=== PATIENT | female | born 1955 ===

== ENCOUNTER 2021-03-14 15:53 | Observation (INO) ==
[2021-03-14] MEDS ORDERED: DEXTROSE 50% 25 GM/50 ML VIAL IV PRN (17:31)
[2021-03-14] MEDS ORDERED: ALBUTEROL/IPRATROPIUM 3 ML NEB RESP TX PRN (17:31)
[2021-03-14] MEDS ORDERED: ACETAMINOPHEN 325 MG TABLET PO PRN (17:31)
[2021-03-14] MEDS ORDERED: GLUCAGON 1 MG VIAL IM PRN (17:31)
[2021-03-14] MEDS ORDERED: ONDANSETRON 4 MG/2 ML VIAL IV PRN (17:31)
[2021-03-14 17:59] LABS: Basophils % 0.7 % (0.0-0.8); Eosinophils # 0.1 10*3/uL (0.0-0.87); Eosinophils % 1.9 % (0.00-10.9); Hematocrit 35.5 VOL% (35.7-47.0); Hemoglobin 10.9 GM/DL (12.0-16.0); Immature Granulocytes % 0.2 %; Immature Granulocytes Absolute 0.01 #; Lymphocytes # 0.8 10*3/uL (1.4-4.0); Lymphocytes % 18.3 % (21.3-54.2); Mean Corpuscular HGB Conc 30.7 GM/DL (32-36); Mean Corpuscular Volume 87.7 FL (87-102); Mean Platelet Volume 10.6 FL (9.6-12.0); Monocytes % 7.7 % (1.7-12.7); Neutrophils % 71.2 % (38.7-73.9); Platelet Count 158 T/CUMM (130-400); Red Blood Count 4.05 MC/CUMM (3.8-5.5); White Blood Count 4.2 T/CUMM (4-12)
[2021-03-14 18:31] LABS: Albumin 2.9 G/DL (3.4-5.0); Bilirubin,Total 0.8 MG/DL (0.20-1.00); Osmolality,Calculated 278.7 MOS/KG (273-304); Total Protein 8.2 G/DL (6.4-8.2)
[2021-03-14] MEDS: INSULIN REGULAR 100 UNIT/ML SUBCUT SCH (22:40)
[2021-03-14 22:54] LABS: Bacteria,Urine Occasional /HPF (Few); Bilirubin,Urine Negative (Negative); Blood, Urine Negative (Negative); Glucose,Urine (UA) Negative (Negative); Hyaline Casts,Urine 3 /LPF (0-3); Ketones,Urine Negative (Negative); Mucus,Urine Occasional /LPF (Occasional); Nitrite,Urine Negative (Negative); Protein,Urine Negative; RBC,Urine 2 /HPF (0-4); Squamous Epithelial Cell,Urine Occasional /HPF (0-10); Urine Appearance CLEAR (Clear); Urine Color Straw (Yellow); Urine Specific Gravity 1.005 (1.001-1.035); Urine Urobilinogen < 2.0 EU/DL (0.2-1.0)
[2021-03-15 05:56] LABS: Eosinophils # 0.1 10*3/uL (0.0-0.87); Eosinophils % 2.8 % (0.00-10.9); Hematocrit 30.1 VOL% (35.7-47.0); Hemoglobin 9.4 GM/DL (12.0-16.0); Immature Granulocytes % 0.3 %; Immature Granulocytes Absolute 0.01 #; Lymphocytes % 24.9 % (21.3-54.2); Mean Corpuscular HGB Conc 31.2 GM/DL (32-36); Mean Corpuscular Volume 86.5 FL (87-102); Mean Platelet Volume 10.9 FL (9.6-12.0); Monocytes % 8.6 % (1.7-12.7); Neutrophils % 62.4 % (38.7-73.9); Platelet Count 135 T/CUMM (130-400); Red Blood Count 3.48 MC/CUMM (3.8-5.5); Red Cell Distribution Width 16.7 % (9.3-17.3)
[2021-03-15 06:04] LABS: PT Patient Result 11.4 SECS (10.5-12.0); Partial Thromboplastin Time 26.8 SECS (23.8-32.1)
[2021-03-15 06:40] LABS: Albumin 2.6 G/DL (3.4-5.0); Bilirubin,Total 0.9 MG/DL (0.20-1.00); Calcium 8.8 MG/DL (8.5-10.1); Risk Ratio 5.33; Thyroid Stimulating Hormone 5.84 uIU/ml (0.358-3.74); Total Protein 7.4 G/DL (6.4-8.2); VLDL Cholesterol 19.4 MG/DL
[2021-03-15] MEDS: INSULIN REGULAR 100 UNIT/ML SUBCUT SCH ×2 (07:30→12:53)
[2021-03-15] MEDS ORDERED: PANTOPRAZOLE 40 MG TABLET PO SCH (09:00)
[2021-03-15 10:59] LABS: Neutrophils,Peritoneal Fluid 1 %
[2021-03-15 11:02] LABS: RBC,Peritoneal Fluid 125 T/CUMM
[2021-03-15 12:22] VITALS: BP 112/60
[2021-03-15] MEDS ORDERED: CALCIUM (CARBONATE) 500 MG TABLET PO SCH (15:00)
[2021-03-15] MEDS ORDERED: PREGABALIN 75 MG CAPSULE PO SCH (21:00)
[2021-03-15] MEDS ORDERED: ATORVASTATIN 40 MG TABLET PO SCH (21:00)
[2021-03-15] MEDS ORDERED: PROPRANOLOL 20 MG TABLET PO SCH (21:00)
[2021-03-16] MEDS ORDERED: SPIRONOLACTONE 50 MG TABLET PO SCH (09:00)
[2021-03-16] MEDS ORDERED: CHOLECALCIFEROL 1,000 UNIT TABLET PO SCH (09:00)
[2021-03-16] MEDS ORDERED: lisinopriL 2.5 MG TABLET PO SCH (09:00)
== END 2021-03-15 14:44 | disposition home or self-care (01) ==
LOC: SUATTDRO 17:26 → N.5E 17:26 → INTOOBSV 17:26
PROVIDERS: ADMIT Internal Medicine; ATTEND Internal Medicine

== ENCOUNTER 2021-11-20 23:50 | Inpatient (IN) ==
[2021-11-21 00:42] LABS: Basophils # 0.1 10*3/uL (0.0-0.2); Basophils % 0.6 % (0.0-0.8); Eosinophils # 0.1 10*3/uL (0.0-0.87); Eosinophils % 0.8 % (0.00-10.9); Hematocrit 37.1 VOL% (35.7-47.0); Immature Granulocytes % 1.1 %; Lymphocytes # 0.6 10*3/uL (1.4-4.0); Mean Corpuscular HGB Conc 32.3 GM/DL (32-36); Mean Platelet Volume 9.8 FL (9.6-12.0); Monocytes # 0.6 10*3/uL (0.11-0.8); Monocytes % 6.4 % (1.7-12.7); Neutrophils % 84.1 % (38.7-73.9); Platelet Count 157 T/CUMM (130-400); Red Blood Count 4.12 MC/CUMM (3.8-5.5); Red Cell Distribution Width 16.4 % (9.3-17.3); White Blood Count 8.9 T/CUMM (4-12)
[2021-11-21 00:44] LABS: Bacteria,Urine Many /HPF (Few); RBC,Urine 21 /HPF (0-4)
[2021-11-21 00:45] LABS: Bilirubin,Urine Small mg/dL (Negative); Blood, Urine Large mg/dL (Negative); Glucose,Urine (UA) >=1000 mg/dL (Negative); Ketones,Urine 15 mg/dL (Negative); Nitrite,Urine Negative (Negative); Protein,Urine 100 mg/dL (Negative); Urine Appearance Cloudy (Clear); Urine Color Yellow (Yellow); Urine Specific Gravity >= 1.030 (1.001-1.035)
[2021-11-21 00:45] LABS: PT Patient Result 10.8 SECS (10.5-12.0)
[2021-11-21 01:01] LABS: Albumin 2.2 G/DL (3.4-5.0); Bilirubin,Total 1.2 MG/DL (0.20-1.00); Calcium 8.9 MG/DL (8.5-10.1); Osmolality,Calculated 278.8 MOS/KG (273-304); Potassium 4.6 MMOL/L (3.5-5.1); Total Protein 7.3 G/DL (6.4-8.2)
[2021-11-21] MEDS ORDERED: cefTRIAXone 1,000 MG in SODIUM CHLORIDE 0.9% 100 ML IV STA (01:07)
[2021-11-21] MEDS ORDERED: INSULIN REGULAR 100 UNIT/ML IV STA (01:12)
[2021-11-21] MEDS ORDERED: SODIUM CHLORIDE 0.9% 500 ML IV STA (01:25)
[2021-11-21] MEDS ORDERED: DEXTROSE 10% 250 ML BAG IV PRN (02:51)
[2021-11-21] MEDS ORDERED: ACETAMINOPHEN 325 MG TABLET PO PRN (02:51)
[2021-11-21] MEDS ORDERED: ONDANSETRON 4 MG/2 ML VIAL IV PRN (02:51)
[2021-11-21] MEDS ORDERED: GLUCAGON 1 MG VIAL IM PRN ×2 (02:51)
[2021-11-21] MEDS ORDERED: DEXTROSE 50% 25 GM/50 ML VIAL IV PRN (02:51)
[2021-11-21 03:36] LABS: Neutrophils,Peritoneal Fluid 12 %; RBC,Peritoneal Fluid 19 T/CUMM
[2021-11-21 03:43] LABS: Total Protein,Body Fluid < 2.0 G/DL
[2021-11-21] MEDS ORDERED: PNEUMOCOCCAL VACCINE (13 VALENT) 0.5 ML SYRINGE IM ONE (09:00)
[2021-11-21] MEDS: INSULIN LISPRO 100 UNIT/ML SUBCUT SCH ×4 (09:01→22:00)
[2021-11-21] MEDS: PANTOPRAZOLE 40 MG TABLET PO SCH (09:01)
[2021-11-21] MEDS ORDERED: ALBUMIN 25% 25 GM/100 ML VIAL IV ONE (11:00)
[2021-11-21] MEDS: MIDODRINE 5 MG TABLET PO SCH ×2 (11:46→21:41)
[2021-11-21] MEDS: CALCIUM (CARBONATE) 500 MG TABLET PO SCH ×2 (16:44→21:41)
[2021-11-21] MEDS ORDERED: INSULIN GLARGINE 100 UNIT/ML SUBCUT SCH (21:00)
[2021-11-21] MEDS: PREGABALIN 75 MG CAPSULE PO SCH (21:41)
[2021-11-21] MEDS: PROPRANOLOL 20 MG TABLET PO SCH (21:41)
[2021-11-22 05:15] LABS: Basophils # 0.1 10*3/uL (0.0-0.2); Basophils % 0.8 % (0.0-0.8); Eosinophils # 0.1 10*3/uL (0.0-0.87); Eosinophils % 1.5 % (0.00-10.9); Hematocrit 35.6 VOL% (35.7-47.0); Hemoglobin 11.5 GM/DL (12.0-16.0); Immature Granulocytes % 0.7 %; Immature Granulocytes Absolute 0.04 #; Lymphocytes # 0.7 10*3/uL (1.4-4.0); Lymphocytes % 12.1 % (21.3-54.2); Mean Corpuscular HGB Conc 32.3 GM/DL (32-36); Mean Corpuscular Volume 90.1 FL (87-102); Mean Platelet Volume 10.2 FL (9.6-12.0); Monocytes # 0.4 10*3/uL (0.11-0.8); Monocytes % 7.3 % (1.7-12.7); Neutrophils % 77.6 % (38.7-73.9); Platelet Count 120 T/CUMM (130-400); Red Blood Count 3.95 MC/CUMM (3.8-5.5); Red Cell Distribution Width 16.5 % (9.3-17.3); White Blood Count 6.1 T/CUMM (4-12)
[2021-11-22 05:45] LABS: Albumin 2.3 G/DL (3.4-5.0); Bilirubin,Total 0.6 MG/DL (0.20-1.00); Osmolality,Calculated 271.8 MOS/KG (273-304); Potassium 4.5 MMOL/L (3.5-5.1); Total Protein 6.6 G/DL (6.4-8.2)
[2021-11-22] MEDS: cefTRIAXone 1,000 MG in SODIUM CHLORIDE 0.9% 100 ML IV SCH (05:53)
[2021-11-22] MEDS: CALCIUM (CARBONATE) 500 MG TABLET PO SCH ×3 (08:09→21:28)
[2021-11-22] MEDS: PROPRANOLOL 20 MG TABLET PO SCH ×2 (08:09→21:34)
[2021-11-22] MEDS: PREGABALIN 75 MG CAPSULE PO SCH ×2 (08:09→21:28)
[2021-11-22] MEDS: CHOLECALCIFEROL 1,000 UNIT TABLET PO SCH (08:10)
[2021-11-22] MEDS: PANTOPRAZOLE 40 MG TABLET PO SCH (08:10)
[2021-11-22] MEDS: MIDODRINE 5 MG TABLET PO SCH ×2 (08:10→21:28)
[2021-11-22] MEDS: SPIRONOLACTONE 50 MG TABLET PO SCH (08:10)
[2021-11-22] MEDS: INSULIN LISPRO 100 UNIT/ML SUBCUT SCH ×4 (09:36→21:29)
[2021-11-22] MEDS ORDERED: ZINC OXIDE PASTE 113 GM TUBE TOP PRN (11:28)
[2021-11-22] MEDS: LACTULOSE 20 GM/30 ML UDCUP PO SCH ×3 (11:42→23:38)
[2021-11-22] MEDS: ALBUMIN 25% 12.5 GM/50 ML VIAL IV SCH (13:25)
[2021-11-22] MEDS ORDERED: ACETAMINOPHEN 500 MG TABLET PO PRN (14:03)
[2021-11-22] MEDS ORDERED: INSULIN GLARGINE 100 UNIT/ML SUBCUT SCH (21:00)
[2021-11-23 02:06] LABS: Neutrophils,Peritoneal Fluid 9 %
[2021-11-23 02:07] LABS: RBC,Peritoneal Fluid < 1 T/CUMM
[2021-11-23] MEDS: cefTRIAXone 1,000 MG in SODIUM CHLORIDE 0.9% 100 ML IV SCH (05:31)
[2021-11-23] MEDS: LACTULOSE 20 GM/30 ML UDCUP PO SCH ×4 (05:33→20:46)
[2021-11-23 06:28] LABS: Basophils % 0.7 % (0.0-0.8); Eosinophils # 0.1 10*3/uL (0.0-0.87); Eosinophils % 1.4 % (0.00-10.9); Hematocrit 35.4 VOL% (35.7-47.0); Hemoglobin 11.4 GM/DL (12.0-16.0); Immature Granulocytes % 0.5 %; Immature Granulocytes Absolute 0.03 #; Lymphocytes # 0.8 10*3/uL (1.4-4.0); Mean Corpuscular HGB Conc 32.2 GM/DL (32-36); Mean Corpuscular Volume 90.8 FL (87-102); Mean Platelet Volume 10.5 FL (9.6-12.0); Monocytes # 0.5 10*3/uL (0.11-0.8); Monocytes % 8.5 % (1.7-12.7); Neutrophils % 75.9 % (38.7-73.9); Platelet Count 113 T/CUMM (130-400); Red Cell Distribution Width 16.4 % (9.3-17.3); White Blood Count 5.9 T/CUMM (4-12)
[2021-11-23 06:48] LABS: Albumin 2.3 G/DL (3.4-5.0); Bilirubin,Total 0.5 MG/DL (0.20-1.00); Calcium 8.8 MG/DL (8.5-10.1); Osmolality,Calculated 276.5 MOS/KG (273-304); Potassium 4.3 MMOL/L (3.5-5.1); Total Protein 6.3 G/DL (6.4-8.2)
[2021-11-23] MEDS: PREGABALIN 75 MG CAPSULE PO SCH ×2 (09:24→20:46)
[2021-11-23] MEDS: MULTIVITAMIN (CENTRUM) TABLET PO SCH (09:24)
[2021-11-23] MEDS: MIDODRINE 5 MG TABLET PO SCH ×2 (09:24→20:47)
[2021-11-23] MEDS: CHOLECALCIFEROL 1,000 UNIT TABLET PO SCH (09:24)
[2021-11-23] MEDS: CALCIUM (CARBONATE) 500 MG TABLET PO SCH ×3 (09:24→20:46)
[2021-11-23] MEDS: PANTOPRAZOLE 40 MG TABLET PO SCH (09:24)
[2021-11-23] MEDS: INSULIN LISPRO 100 UNIT/ML SUBCUT SCH ×4 (09:31→20:47)
[2021-11-23] MEDS: ALBUMIN 25% 12.5 GM/50 ML VIAL IV SCH (09:31)
[2021-11-23] MEDS: PROPRANOLOL 20 MG TABLET PO SCH (09:32)
[2021-11-23] MEDS: SPIRONOLACTONE 50 MG TABLET PO SCH (09:32)
[2021-11-23] MEDS: FUROSEMIDE 20 MG TABLET PO SCH (14:37)
[2021-11-23] MEDS ORDERED: INSULIN GLARGINE 100 UNIT/ML SUBCUT SCH (21:00)
[2021-11-24 05:00] LABS: Basophils % 0.4 % (0.0-0.8); Eosinophils # 0.1 10*3/uL (0.0-0.87); Eosinophils % 0.6 % (0.00-10.9); Hematocrit 36.2 VOL% (35.7-47.0); Hemoglobin 11.7 GM/DL (12.0-16.0); Immature Granulocytes % 0.5 %; Immature Granulocytes Absolute 0.05 #; Lymphocytes # 0.6 10*3/uL (1.4-4.0); Lymphocytes % 5.4 % (21.3-54.2); Mean Corpuscular HGB Conc 32.3 GM/DL (32-36); Mean Corpuscular Volume 90.7 FL (87-102); Monocytes # 0.7 10*3/uL (0.11-0.8); Monocytes % 6.1 % (1.7-12.7); Platelet Count 108 T/CUMM (130-400); Red Blood Count 3.99 MC/CUMM (3.8-5.5); Red Cell Distribution Width 16.2 % (9.3-17.3); White Blood Count 10.6 T/CUMM (4-12)
[2021-11-24 05:31] LABS: Albumin 2.3 G/DL (3.4-5.0); Bilirubin,Total 0.7 MG/DL (0.20-1.00); Calcium 8.6 MG/DL (8.5-10.1); Osmolality,Calculated 279.4 MOS/KG (273-304); Potassium 4.6 MMOL/L (3.5-5.1); Total Protein 6.5 G/DL (6.4-8.2)
[2021-11-24] MEDS: cefTRIAXone 1,000 MG in SODIUM CHLORIDE 0.9% 100 ML IV SCH (05:31)
[2021-11-24] MEDS: CALCIUM (CARBONATE) 500 MG TABLET PO SCH (08:28)
[2021-11-24] MEDS: CHOLECALCIFEROL 1,000 UNIT TABLET PO SCH (08:28)
[2021-11-24] MEDS: MIDODRINE 5 MG TABLET PO SCH (08:28)
[2021-11-24] MEDS: MULTIVITAMIN (CENTRUM) TABLET PO SCH (08:28)
[2021-11-24] MEDS: FUROSEMIDE 20 MG TABLET PO SCH (08:28)
[2021-11-24] MEDS: PANTOPRAZOLE 40 MG TABLET PO SCH (08:28)
[2021-11-24] MEDS: INSULIN LISPRO 100 UNIT/ML SUBCUT SCH ×2 (08:28→12:30)
[2021-11-24] MEDS: SPIRONOLACTONE 50 MG TABLET PO SCH (08:28)
[2021-11-24] MEDS: LACTULOSE 20 GM/30 ML UDCUP PO SCH (08:30)
[2021-11-24] MEDS: PREGABALIN 75 MG CAPSULE PO SCH (08:31)
[2021-11-24] MEDS: ALBUMIN 25% 12.5 GM/50 ML VIAL IV SCH (08:40)
[2021-11-24] MEDS ORDERED: RIFAXIMIN 550 MG TABLET PO SCH (09:00)
[2021-11-24 11:57] VITALS: BP 97/58
== END 2021-11-24 14:19 | disposition home health service (06) | DRG 442 ==
LOC: EDBD → EDUNIT# → N.ED 23:50 → N.3E 11-21 02:51
PROVIDERS: ADMIT Internal Medicine; ATTEND Internal Medicine

== ENCOUNTER 2021-12-01 19:08 | Inpatient (IN) ==
[2021-12-01] MEDS ORDERED: SODIUM CHLORIDE 0.9% 500 ML IV STA (19:32)
[2021-12-01 19:41] LABS: Basophils # 0.1 10*3/uL (0.0-0.2); Basophils % 0.6 % (0.0-0.8); Eosinophils % 0.4 % (0.00-10.9); Hematocrit 36.9 VOL% (35.7-47.0); Hemoglobin 11.8 GM/DL (12.0-16.0); Immature Granulocytes % 0.9 %; Immature Granulocytes Absolute 0.07 #; Lymphocytes # 0.4 10*3/uL (1.4-4.0); Lymphocytes % 4.5 % (21.3-54.2); Mean Corpuscular Volume 91.6 FL (87-102); Mean Platelet Volume 10.2 FL (9.6-12.0); Monocytes # 0.4 10*3/uL (0.11-0.8); Monocytes % 5.4 % (1.7-12.7); Neutrophils % 88.2 % (38.7-73.9); Platelet Count 170 T/CUMM (130-400); Red Blood Count 4.03 MC/CUMM (3.8-5.5); Red Cell Distribution Width 16.5 % (9.3-17.3)
[2021-12-01 20:19] LABS: Alanine Aminotransferase 20 U/L (13-56); Albumin 2.3 G/DL (3.4-5.0); Alkaline Phosphatase 118 U/L (45-117); Aspartate Amino Transferase 17 U/L (0-37); Blood Urea Nitrogen 23 MG/DL (7-18); Calcium 8.2 MG/DL (8.5-10.1); Carbon Dioxide 21 MMOL/L (21-32); Chloride 102 MMOL/L (98-107); Glucose 350 MG/DL (74-106); Osmolality,Calculated 285.2 MOS/KG (273-304); Potassium 4.5 MMOL/L (3.5-5.1); Sodium 134 MMOL/L (136-145); Total Protein 6.9 G/DL (6.4-8.2)
[2021-12-01 20:28] LABS: Lymphocytes 1 % (20-55); Metamyelocytes 1 %; Total Cells Counted 100
[2021-12-01 20:29] LABS: Burr Cells Few; Elliptocytes Few; Platelet Estimate Normal
[2021-12-01 22:32] LABS: Mucus,Urine Occasional /LPF (Occasional); RBC,Urine 79 /HPF (0-4); Urine Appearance Slightly Cloudy (Clear); Urine Color Dark Yellow (Yellow)
[2021-12-01 22:33] LABS: Bilirubin,Urine Negative (Negative); Blood, Urine Moderate mg/dL (Negative); Glucose,Urine (UA) 500 mg/dL (Negative); Ketones,Urine 15 mg/dL (Negative); Nitrite,Urine Negative (Negative); Protein,Urine Negative (Negative); Urine Urobilinogen 0.2 eU/dL (<2.0)
[2021-12-01] MEDS ORDERED: GLUCAGON 1 MG VIAL IM PRN ×2 (22:34→23:01)
[2021-12-01] MEDS ORDERED: DEXTROSE 10% 250 ML BAG IV PRN (22:34)
[2021-12-01] MEDS ORDERED: DEXTROSE 50% 25 GM/50 ML VIAL IV PRN (23:01)
[2021-12-02] MEDS: LACTATED RINGERS 1,000 ML IV SCH ×4 (00:09→21:57)
[2021-12-02 02:52] LABS: Basophils % 0.6 % (0.0-0.8); Eosinophils # 0.1 10*3/uL (0.0-0.87); Eosinophils % 0.7 % (0.00-10.9); Hematocrit 36.5 VOL% (35.7-47.0); Hemoglobin 11.5 GM/DL (12.0-16.0); Immature Granulocytes % 0.3 %; Immature Granulocytes Absolute 0.02 #; Lymphocytes # 0.4 10*3/uL (1.4-4.0); Lymphocytes % 5.9 % (21.3-54.2); Mean Corpuscular HGB Conc 31.5 GM/DL (32-36); Mean Corpuscular Volume 92.2 FL (87-102); Mean Platelet Volume 9.7 FL (9.6-12.0); Monocytes # 0.4 10*3/uL (0.11-0.8); Monocytes % 6.2 % (1.7-12.7); Neutrophils % 86.3 % (38.7-73.9); Platelet Count 153 T/CUMM (130-400); Red Blood Count 3.96 MC/CUMM (3.8-5.5); Red Cell Distribution Width 16.7 % (9.3-17.3)
[2021-12-02 03:12] LABS: Calcium 8.7 MG/DL (8.5-10.1); Osmolality,Calculated 278.5 MOS/KG (273-304); Potassium 4.8 MMOL/L (3.5-5.1)
[2021-12-02] MEDS ORDERED: ALBUMIN 25% 12.5 GM/50 ML VIAL IV ONE (12:00)
[2021-12-02] MEDS: INSULIN REGULAR 100 UNIT/ML SUBCUT SCH ×4 (12:31→21:46)
[2021-12-02] MEDS: CEFUROXIME 500 MG TABLET PO SCH ×2 (13:17→21:43)
[2021-12-02] MEDS: ACETAMINOPHEN 325 MG TABLET PO PRN ×2 (13:17→21:45)
[2021-12-02] MEDS: MIDODRINE 5 MG TABLET PO SCH ×2 (13:17→21:44)
[2021-12-02] MEDS: RIFAXIMIN 550 MG TABLET PO SCH ×2 (13:17→21:45)
[2021-12-02] MEDS: LACTULOSE 20 GM/30 ML UDCUP PO SCH ×3 (13:18→21:44)
[2021-12-02] MEDS: FUROSEMIDE 20 MG TABLET PO SCH (13:18)
[2021-12-02] MEDS: PANTOPRAZOLE 40 MG TABLET PO SCH (13:18)
[2021-12-02] MEDS: PREGABALIN 75 MG CAPSULE PO SCH ×2 (13:19→21:43)
[2021-12-02] MEDS: SPIRONOLACTONE 50 MG TABLET PO SCH (13:21)
[2021-12-02] MEDS ORDERED: BISACODYL 10 MG SUPP RECTAL PRN (14:51)
[2021-12-02] MEDS ORDERED: BISACODYL 10 MG SUPP RECTAL ONE (14:51)
[2021-12-02] MEDS ORDERED: MINERAL OIL ENEMA 133 ML BOTTLE RECTAL ONE (15:08)
[2021-12-02] MEDS ORDERED: MINERAL OIL ENEMA 133 ML BOTTLE RECTAL PRN (15:09)
[2021-12-02] MEDS: CALCIUM (CARBONATE) 500 MG TABLET PO SCH ×3 (17:33→21:47)
[2021-12-02] MEDS ORDERED: INSULIN GLARGINE 100 UNIT/ML SUBCUT SCH (21:00)
[2021-12-02] MEDS: INSULIN GLARGINE 100 UNIT/ML SUBCUT SCH (21:46)
[2021-12-03 08:47] LABS: Basophils % 0.3 % (0.0-0.8); Eosinophils # 0.1 10*3/uL (0.0-0.87); Hematocrit 34.2 VOL% (35.7-47.0); Hemoglobin 10.9 GM/DL (12.0-16.0); Immature Granulocytes % 0.4 %; Immature Granulocytes Absolute 0.03 #; Lymphocytes # 0.5 10*3/uL (1.4-4.0); Lymphocytes % 7.9 % (21.3-54.2); Mean Corpuscular HGB Conc 31.9 GM/DL (32-36); Mean Corpuscular Volume 91.4 FL (87-102); Mean Platelet Volume 10.7 FL (9.6-12.0); Monocytes # 0.5 10*3/uL (0.11-0.8); Monocytes % 7.4 % (1.7-12.7); Platelet Count 149 T/CUMM (130-400); Red Blood Count 3.74 MC/CUMM (3.8-5.5); Red Cell Distribution Width 16.8 % (9.3-17.3); White Blood Count 6.9 T/CUMM (4-12)
[2021-12-03 08:57] LABS: Osmolality,Calculated 280.8 MOS/KG (273-304); Potassium 3.7 MMOL/L (3.5-5.1)
[2021-12-03] MEDS: LACTULOSE 20 GM/30 ML UDCUP PO SCH ×3 (10:17→21:29)
[2021-12-03] MEDS: SPIRONOLACTONE 50 MG TABLET PO SCH (10:17)
[2021-12-03] MEDS: MIDODRINE 5 MG TABLET PO SCH ×2 (10:18→21:28)
[2021-12-03] MEDS: CEFUROXIME 500 MG TABLET PO SCH ×2 (10:18→21:29)
[2021-12-03] MEDS: ACETAMINOPHEN 325 MG TABLET PO PRN (10:18)
[2021-12-03] MEDS: RIFAXIMIN 550 MG TABLET PO SCH ×2 (10:18→21:28)
[2021-12-03] MEDS: PREGABALIN 75 MG CAPSULE PO SCH ×2 (10:18→21:27)
[2021-12-03] MEDS: FUROSEMIDE 20 MG TABLET PO SCH (10:18)
[2021-12-03] MEDS: CALCIUM (CARBONATE) 500 MG TABLET PO SCH ×3 (10:19→21:28)
[2021-12-03] MEDS: INSULIN REGULAR 100 UNIT/ML SUBCUT SCH ×4 (10:19→21:30)
[2021-12-03] MEDS: PANTOPRAZOLE 40 MG TABLET PO SCH (10:22)
[2021-12-03] MEDS ORDERED: REMDESIVIR 200 MG in SODIUM CHLORIDE 0.9% 210 ML IV ONE (15:00)
[2021-12-03] MEDS: LACTATED RINGERS 1,000 ML IV SCH ×2 (17:05)
[2021-12-03] MEDS: ASCORBIC ACID 500 MG TABLET PO SCH (21:28)
[2021-12-03] MEDS: INSULIN GLARGINE 100 UNIT/ML SUBCUT SCH (21:31)
[2021-12-03] MEDS: MENTHOL/ZINC OXIDE OINT 71 GM JAR TOP SCH (21:40)
[2021-12-04] MEDS: ACETAMINOPHEN 325 MG TABLET PO PRN ×4 (02:05→21:56)
[2021-12-04] MEDS: LACTATED RINGERS 1,000 ML IV SCH ×4 (03:53→23:54)
[2021-12-04 06:26] LABS: Basophils # 0.1 10*3/uL (0.0-0.2); Basophils % 0.8 % (0.0-0.8); Eosinophils # 0.1 10*3/uL (0.0-0.87); Eosinophils % 1.7 % (0.00-10.9); Hematocrit 36.4 VOL% (35.7-47.0); Hemoglobin 11.7 GM/DL (12.0-16.0); Immature Granulocytes % 0.7 %; Immature Granulocytes Absolute 0.05 #; Lymphocytes # 0.5 10*3/uL (1.4-4.0); Lymphocytes % 7.4 % (21.3-54.2); Mean Corpuscular HGB Conc 32.1 GM/DL (32-36); Mean Corpuscular Volume 90.5 FL (87-102); Mean Platelet Volume 10.2 FL (9.6-12.0); Monocytes # 0.4 10*3/uL (0.11-0.8); Monocytes % 5.7 % (1.7-12.7); Neutrophils % 83.7 % (38.7-73.9); Platelet Count 159 T/CUMM (130-400); Red Blood Count 4.02 MC/CUMM (3.8-5.5); Red Cell Distribution Width 16.6 % (9.3-17.3); White Blood Count 7.2 T/CUMM (4-12)
[2021-12-04 06:37] LABS: Calcium 8.1 MG/DL (8.5-10.1); Osmolality,Calculated 279.4 MOS/KG (273-304); Potassium 4.4 MMOL/L (3.5-5.1)
[2021-12-04] MEDS: CHOLECALCIFEROL 400 UNIT TABLET PO SCH (10:23)
[2021-12-04] MEDS: MIDODRINE 5 MG TABLET PO SCH ×2 (10:23→21:55)
[2021-12-04] MEDS: INSULIN REGULAR 100 UNIT/ML SUBCUT SCH ×4 (10:23→21:52)
[2021-12-04] MEDS: ZINC SULFATE 220 MG CAPSULE PO SCH (10:24)
[2021-12-04] MEDS: RIFAXIMIN 550 MG TABLET PO SCH ×2 (10:24→21:55)
[2021-12-04] MEDS: SPIRONOLACTONE 50 MG TABLET PO SCH (10:24)
[2021-12-04] MEDS: ASCORBIC ACID 500 MG TABLET PO SCH ×2 (10:24→21:55)
[2021-12-04] MEDS: CEFUROXIME 500 MG TABLET PO SCH ×2 (10:25→21:55)
[2021-12-04] MEDS: LACTULOSE 20 GM/30 ML UDCUP PO SCH (10:25)
[2021-12-04] MEDS: PANTOPRAZOLE 40 MG TABLET PO SCH (10:25)
[2021-12-04] MEDS: CALCIUM (CARBONATE) 500 MG TABLET PO SCH ×3 (10:25→21:55)
[2021-12-04] MEDS: PREGABALIN 75 MG CAPSULE PO SCH ×2 (10:25→21:54)
[2021-12-04] MEDS: FUROSEMIDE 20 MG TABLET PO SCH (10:25)
[2021-12-04] MEDS: MENTHOL/ZINC OXIDE OINT 71 GM JAR TOP SCH ×2 (10:26→21:56)
[2021-12-04] MEDS: REMDESIVIR 100 MG in SODIUM CHLORIDE 0.9% 100 ML IV SCH (10:26)
[2021-12-04] MEDS: ONDANSETRON 4 MG/2 ML VIAL IV PRN (12:26)
[2021-12-04] MEDS ORDERED: LACTULOSE 20 GM/30 ML UDCUP PO SCH (14:30)
[2021-12-04] MEDS ORDERED: MAGNESIUM HYDROXIDE SUSP 30 ML UDCUP PO ONE (14:38)
[2021-12-04] MEDS ORDERED: BISACODYL 10 MG SUPP RECTAL ONE (14:39)
[2021-12-04] MEDS ORDERED: LACTULOSE 320 GM/480 ML BOTTLE RECTAL SCH (15:18)
[2021-12-04] MEDS: POLYETHYLENE GLYCOL POWDER 17 GM PACK PO SCH (17:26)
[2021-12-04] MEDS: LACTULOSE 320 GM/480 ML BOTTLE RECTAL SCH (17:27)
[2021-12-04] MEDS: INSULIN GLARGINE 100 UNIT/ML SUBCUT SCH (21:52)
[2021-12-05] MEDS: LACTULOSE 320 GM/480 ML BOTTLE RECTAL SCH ×2 (01:00→04:39)
[2021-12-05] MEDS: LACTULOSE 20 GM/30 ML UDCUP PO SCH ×5 (05:49→22:10)
[2021-12-05 06:52] LABS: Basophils # 0.1 10*3/uL (0.0-0.2); Basophils % 0.6 % (0.0-0.8); Eosinophils # 0.2 10*3/uL (0.0-0.87); Eosinophils % 1.4 % (0.00-10.9); Hematocrit 39.2 VOL% (35.7-47.0); Hemoglobin 12.4 GM/DL (12.0-16.0); Immature Granulocytes % 0.7 %; Immature Granulocytes Absolute 0.07 #; Lymphocytes # 0.6 10*3/uL (1.4-4.0); Lymphocytes % 5.4 % (21.3-54.2); Mean Corpuscular HGB Conc 31.6 GM/DL (32-36); Mean Corpuscular Volume 91.8 FL (87-102); Monocytes # 0.6 10*3/uL (0.11-0.8); Monocytes % 5.5 % (1.7-12.7); Neutrophils % 86.4 % (38.7-73.9); Platelet Count 181 T/CUMM (130-400); Red Blood Count 4.27 MC/CUMM (3.8-5.5); Red Cell Distribution Width 16.6 % (9.3-17.3); White Blood Count 10.4 T/CUMM (4-12)
[2021-12-05 07:17] LABS: Calcium 8.6 MG/DL (8.5-10.1); Osmolality,Calculated 271.4 MOS/KG (273-304); Potassium 4.4 MMOL/L (3.5-5.1)
[2021-12-05] MEDS: ZINC SULFATE 220 MG CAPSULE PO SCH (08:59)
[2021-12-05] MEDS: PANTOPRAZOLE 40 MG TABLET PO SCH (08:59)
[2021-12-05] MEDS: MIDODRINE 5 MG TABLET PO SCH ×2 (08:59→20:40)
[2021-12-05] MEDS: LACTATED RINGERS 1,000 ML IV SCH (08:59)
[2021-12-05] MEDS: CEFUROXIME 500 MG TABLET PO SCH ×2 (09:00→20:40)
[2021-12-05] MEDS: ASCORBIC ACID 500 MG TABLET PO SCH ×2 (09:00→20:40)
[2021-12-05] MEDS: CALCIUM (CARBONATE) 500 MG TABLET PO SCH ×3 (09:00→20:40)
[2021-12-05] MEDS: RIFAXIMIN 550 MG TABLET PO SCH ×2 (09:00→20:40)
[2021-12-05] MEDS ORDERED: SPIRONOLACTONE 25 MG TABLET PO SCH (09:00)
[2021-12-05] MEDS: CHOLECALCIFEROL 400 UNIT TABLET PO SCH (09:00)
[2021-12-05] MEDS: PREGABALIN 75 MG CAPSULE PO SCH ×2 (09:00→20:40)
[2021-12-05] MEDS: INSULIN REGULAR 100 UNIT/ML SUBCUT SCH ×4 (09:01→20:40)
[2021-12-05] MEDS: REMDESIVIR 100 MG in SODIUM CHLORIDE 0.9% 100 ML IV SCH (09:02)
[2021-12-05] MEDS: MENTHOL/ZINC OXIDE OINT 71 GM JAR TOP SCH ×2 (09:03→20:40)
[2021-12-05] MEDS: ACETAMINOPHEN 325 MG TABLET PO PRN (09:10)
[2021-12-05] MEDS: POLYETHYLENE GLYCOL POWDER 17 GM PACK PO SCH (09:12)
[2021-12-05] MEDS: DEXTROSE 5% NACL 0.45% 1,000 ML IV SCH ×2 (13:34→20:40)
[2021-12-05] MEDS: INSULIN GLARGINE 100 UNIT/ML SUBCUT SCH (20:40)
[2021-12-06] MEDS: LACTULOSE 20 GM/30 ML UDCUP PO SCH ×6 (03:42→22:25)
[2021-12-06] MEDS: DEXTROSE 5% NACL 0.45% 1,000 ML IV SCH (05:30)
[2021-12-06 06:30] LABS: Basophils % 0.5 % (0.0-0.8); Eosinophils # 0.2 10*3/uL (0.0-0.87); Eosinophils % 2.4 % (0.00-10.9); Hematocrit 37.7 VOL% (35.7-47.0); Hemoglobin 11.9 GM/DL (12.0-16.0); Immature Granulocytes Absolute 0.08 #; Lymphocytes # 0.6 10*3/uL (1.4-4.0); Lymphocytes % 7.6 % (21.3-54.2); Mean Corpuscular HGB Conc 31.6 GM/DL (32-36); Mean Corpuscular Volume 92.6 FL (87-102); Mean Platelet Volume 9.8 FL (9.6-12.0); Monocytes # 0.5 10*3/uL (0.11-0.8); Monocytes % 6.1 % (1.7-12.7); Neutrophils % 82.4 % (38.7-73.9); Platelet Count 168 T/CUMM (130-400); Red Blood Count 4.07 MC/CUMM (3.8-5.5); Red Cell Distribution Width 16.9 % (9.3-17.3); White Blood Count 7.9 T/CUMM (4-12)
[2021-12-06 06:58] LABS: Albumin 1.9 G/DL (3.4-5.0); Bilirubin,Total 0.5 MG/DL (0.20-1.00); Calcium 8.4 MG/DL (8.5-10.1); Osmolality,Calculated 277.4 MOS/KG (273-304); Potassium 4.3 MMOL/L (3.5-5.1); Total Protein 6.4 G/DL (6.4-8.2)
[2021-12-06 07:07] LABS: Calcium 8.3 MG/DL (8.5-10.1); Osmolality,Calculated 275.5 MOS/KG (273-304); Potassium 4.3 MMOL/L (3.5-5.1)
[2021-12-06] MEDS: INSULIN REGULAR 100 UNIT/ML SUBCUT SCH ×4 (09:50→22:09)
[2021-12-06] MEDS: CEFUROXIME 500 MG TABLET PO SCH ×2 (09:51→22:08)
[2021-12-06] MEDS: RIFAXIMIN 550 MG TABLET PO SCH ×2 (09:51→22:08)
[2021-12-06] MEDS: CHOLECALCIFEROL 400 UNIT TABLET PO SCH (09:51)
[2021-12-06] MEDS: CALCIUM (CARBONATE) 500 MG TABLET PO SCH ×3 (09:52→22:08)
[2021-12-06] MEDS: ASCORBIC ACID 500 MG TABLET PO SCH ×2 (09:52→22:08)
[2021-12-06] MEDS: MIDODRINE 5 MG TABLET PO SCH ×2 (09:52→22:25)
[2021-12-06] MEDS: PREGABALIN 75 MG CAPSULE PO SCH ×2 (09:52→22:08)
[2021-12-06] MEDS: ZINC SULFATE 220 MG CAPSULE PO SCH (09:52)
[2021-12-06] MEDS: REMDESIVIR 100 MG in SODIUM CHLORIDE 0.9% 100 ML IV SCH (09:52)
[2021-12-06] MEDS: POLYETHYLENE GLYCOL POWDER 17 GM PACK PO SCH (09:53)
[2021-12-06] MEDS: MENTHOL/ZINC OXIDE OINT 71 GM JAR TOP SCH ×2 (09:53→22:25)
[2021-12-06] MEDS: PANTOPRAZOLE 40 MG TABLET PO SCH (09:53)
[2021-12-06] MEDS ORDERED: ALBUMIN 25% 25 GM/100 ML VIAL IV ONE (17:00)
[2021-12-06] MEDS: INSULIN GLARGINE 100 UNIT/ML SUBCUT SCH (22:09)
[2021-12-07] MEDS: LACTULOSE 20 GM/30 ML UDCUP PO SCH ×6 (01:49→21:14)
[2021-12-07] MEDS: ONDANSETRON 4 MG/2 ML VIAL IV PRN (05:05)
[2021-12-07 05:18] LABS: Basophils # 0.1 10*3/uL (0.0-0.2); Basophils % 0.9 % (0.0-0.8); Eosinophils # 0.1 10*3/uL (0.0-0.87); Eosinophils % 1.9 % (0.00-10.9); Hematocrit 37.7 VOL% (35.7-47.0); Hemoglobin 12.1 GM/DL (12.0-16.0); Immature Granulocytes % 0.8 %; Immature Granulocytes Absolute 0.06 #; Lymphocytes # 0.6 10*3/uL (1.4-4.0); Lymphocytes % 7.9 % (21.3-54.2); Mean Corpuscular HGB Conc 32.1 GM/DL (32-36); Mean Corpuscular Volume 90.8 FL (87-102); Mean Platelet Volume 10.3 FL (9.6-12.0); Monocytes # 0.6 10*3/uL (0.11-0.8); Monocytes % 8.3 % (1.7-12.7); Neutrophils % 80.2 % (38.7-73.9); Platelet Count 203 T/CUMM (130-400); Red Blood Count 4.15 MC/CUMM (3.8-5.5); Red Cell Distribution Width 16.8 % (9.3-17.3); White Blood Count 7.5 T/CUMM (4-12)
[2021-12-07 05:33] LABS: Albumin 2.7 G/DL (3.4-5.0); Bilirubin,Total 0.5 MG/DL (0.20-1.00); Calcium 9.1 MG/DL (8.5-10.1); Osmolality,Calculated 274.2 MOS/KG (273-304); Potassium 4.2 MMOL/L (3.5-5.1); Total Protein 6.8 G/DL (6.4-8.2)
[2021-12-07] MEDS: INSULIN REGULAR 100 UNIT/ML SUBCUT SCH ×4 (08:07→20:54)
[2021-12-07] MEDS ORDERED: SODIUM CHLORIDE 0.9% 250 ML IV ONE (09:09)
[2021-12-07] MEDS: REMDESIVIR 100 MG in SODIUM CHLORIDE 0.9% 100 ML IV SCH (09:35)
[2021-12-07] MEDS: MIDODRINE 5 MG TABLET PO SCH ×3 (09:38→20:52)
[2021-12-07] MEDS: FUROSEMIDE 20 MG TABLET PO SCH (09:38)
[2021-12-07] MEDS: CHOLECALCIFEROL 400 UNIT TABLET PO SCH (09:39)
[2021-12-07] MEDS: CEFUROXIME 500 MG TABLET PO SCH ×2 (09:39→20:52)
[2021-12-07] MEDS: CALCIUM (CARBONATE) 500 MG TABLET PO SCH ×3 (09:39→20:52)
[2021-12-07] MEDS: SPIRONOLACTONE 50 MG TABLET PO SCH (09:40)
[2021-12-07] MEDS: PREGABALIN 75 MG CAPSULE PO SCH ×2 (09:40→20:52)
[2021-12-07] MEDS: PANTOPRAZOLE 40 MG TABLET PO SCH (09:40)
[2021-12-07] MEDS: RIFAXIMIN 550 MG TABLET PO SCH ×2 (09:41→20:52)
[2021-12-07] MEDS: ZINC SULFATE 220 MG CAPSULE PO SCH (09:41)
[2021-12-07] MEDS: ASCORBIC ACID 500 MG TABLET PO SCH ×2 (09:41→20:52)
[2021-12-07] MEDS: MENTHOL/ZINC OXIDE OINT 71 GM JAR TOP SCH ×2 (09:42→20:52)
[2021-12-07] MEDS: POLYETHYLENE GLYCOL POWDER 17 GM PACK PO SCH (09:42)
[2021-12-07] MEDS: INSULIN GLARGINE 100 UNIT/ML SUBCUT SCH (20:53)
[2021-12-08] MEDS: LACTULOSE 20 GM/30 ML UDCUP PO SCH ×6 (01:25→22:38)
[2021-12-08 06:27] LABS: Basophils # 0.1 10*3/uL (0.0-0.2); Basophils % 0.8 % (0.0-0.8); Eosinophils # 0.2 10*3/uL (0.0-0.87); Hematocrit 34.4 VOL% (35.7-47.0); Hemoglobin 11.1 GM/DL (12.0-16.0); Immature Granulocytes % 0.8 %; Immature Granulocytes Absolute 0.06 #; Lymphocytes # 0.7 10*3/uL (1.4-4.0); Lymphocytes % 9.7 % (21.3-54.2); Mean Corpuscular HGB Conc 32.3 GM/DL (32-36); Mean Corpuscular Volume 90.8 FL (87-102); Mean Platelet Volume 9.9 FL (9.6-12.0); Monocytes # 0.6 10*3/uL (0.11-0.8); Monocytes % 8.7 % (1.7-12.7); Platelet Count 174 T/CUMM (130-400); Red Blood Count 3.79 MC/CUMM (3.8-5.5); Red Cell Distribution Width 16.8 % (9.3-17.3); White Blood Count 7.4 T/CUMM (4-12)
[2021-12-08 06:48] LABS: Albumin 2.3 G/DL (3.4-5.0); Bilirubin,Total 0.5 MG/DL (0.20-1.00); Calcium 8.7 MG/DL (8.5-10.1); Osmolality,Calculated 273.4 MOS/KG (273-304); Potassium 4.2 MMOL/L (3.5-5.1); Total Protein 6.1 G/DL (6.4-8.2)
[2021-12-08] MEDS: INSULIN REGULAR 100 UNIT/ML SUBCUT SCH ×4 (08:24→20:54)
[2021-12-08] MEDS: CEFUROXIME 500 MG TABLET PO SCH ×2 (08:42→20:54)
[2021-12-08] MEDS: CALCIUM (CARBONATE) 500 MG TABLET PO SCH ×3 (08:42→20:54)
[2021-12-08] MEDS: SPIRONOLACTONE 50 MG TABLET PO SCH (08:42)
[2021-12-08] MEDS: MIDODRINE 5 MG TABLET PO SCH ×3 (08:42→20:54)
[2021-12-08] MEDS: ZINC SULFATE 220 MG CAPSULE PO SCH (08:43)
[2021-12-08] MEDS: PANTOPRAZOLE 40 MG TABLET PO SCH (08:43)
[2021-12-08] MEDS: PREGABALIN 75 MG CAPSULE PO SCH ×2 (08:43→20:53)
[2021-12-08] MEDS: FUROSEMIDE 20 MG TABLET PO SCH (08:44)
[2021-12-08] MEDS: MENTHOL/ZINC OXIDE OINT 71 GM JAR TOP SCH ×2 (08:44→20:55)
[2021-12-08] MEDS: CHOLECALCIFEROL 400 UNIT TABLET PO SCH (08:44)
[2021-12-08] MEDS: POLYETHYLENE GLYCOL POWDER 17 GM PACK PO SCH (08:44)
[2021-12-08] MEDS: RIFAXIMIN 550 MG TABLET PO SCH ×2 (08:44→20:54)
[2021-12-08] MEDS: ASCORBIC ACID 500 MG TABLET PO SCH ×2 (08:45→20:54)
[2021-12-08] MEDS: METOPROLOL SUCCINATE XL 25 MG TABLET PO SCH (12:45)
[2021-12-08] MEDS: ACETAMINOPHEN 325 MG TABLET PO PRN (12:47)
[2021-12-08] MEDS: INSULIN GLARGINE 100 UNIT/ML SUBCUT SCH (20:54)
[2021-12-09] MEDS: LACTULOSE 20 GM/30 ML UDCUP PO SCH ×6 (01:47→22:39)
[2021-12-09 06:03] LABS: Basophils # 0.1 10*3/uL (0.0-0.2); Basophils % 0.7 % (0.0-0.8); Eosinophils # 0.1 10*3/uL (0.0-0.87); Eosinophils % 1.9 % (0.00-10.9); Hematocrit 35.1 VOL% (35.7-47.0); Hemoglobin 11.3 GM/DL (12.0-16.0); Immature Granulocytes % 0.6 %; Immature Granulocytes Absolute 0.04 #; Lymphocytes # 0.7 10*3/uL (1.4-4.0); Mean Corpuscular HGB Conc 32.2 GM/DL (32-36); Mean Corpuscular Volume 90.9 FL (87-102); Mean Platelet Volume 9.7 FL (9.6-12.0); Monocytes # 0.7 10*3/uL (0.11-0.8); Monocytes % 9.3 % (1.7-12.7); Neutrophils % 77.5 % (38.7-73.9); Platelet Count 181 T/CUMM (130-400); Red Blood Count 3.86 MC/CUMM (3.8-5.5); Red Cell Distribution Width 17.1 % (9.3-17.3); White Blood Count 7.2 T/CUMM (4-12)
[2021-12-09 06:47] LABS: Albumin 2.2 G/DL (3.4-5.0); Bilirubin,Total 0.5 MG/DL (0.20-1.00); Calcium 8.6 MG/DL (8.5-10.1); Osmolality,Calculated 278.2 MOS/KG (273-304); Potassium 4.2 MMOL/L (3.5-5.1); Total Protein 6.1 G/DL (6.4-8.2)
[2021-12-09] MEDS: INSULIN REGULAR 100 UNIT/ML SUBCUT SCH ×4 (08:30→21:55)
[2021-12-09] MEDS: CEFUROXIME 500 MG TABLET PO SCH (08:30)
[2021-12-09] MEDS: POLYETHYLENE GLYCOL POWDER 17 GM PACK PO SCH (08:30)
[2021-12-09] MEDS: FUROSEMIDE 20 MG TABLET PO SCH (08:30)
[2021-12-09] MEDS: MENTHOL/ZINC OXIDE OINT 71 GM JAR TOP SCH ×2 (08:30→21:55)
[2021-12-09] MEDS: MIDODRINE 5 MG TABLET PO SCH ×3 (09:30→21:55)
[2021-12-09] MEDS: SPIRONOLACTONE 50 MG TABLET PO SCH (09:30)
[2021-12-09] MEDS: ZINC SULFATE 220 MG CAPSULE PO SCH (09:30)
[2021-12-09] MEDS: ASCORBIC ACID 500 MG TABLET PO SCH ×2 (09:30→21:55)
[2021-12-09] MEDS: CHOLECALCIFEROL 400 UNIT TABLET PO SCH (09:30)
[2021-12-09] MEDS: PREGABALIN 75 MG CAPSULE PO SCH ×2 (09:30→21:55)
[2021-12-09] MEDS: PANTOPRAZOLE 40 MG TABLET PO SCH (09:30)
[2021-12-09] MEDS: CALCIUM (CARBONATE) 500 MG TABLET PO SCH ×3 (09:30→21:55)
[2021-12-09] MEDS: RIFAXIMIN 550 MG TABLET PO SCH ×2 (09:30→21:55)
[2021-12-09] MEDS: METOPROLOL SUCCINATE XL 25 MG TABLET PO SCH (09:30)
[2021-12-09] MEDS ORDERED: SODIUM CHLORIDE 0.9% 250 ML IV ONE (13:38)
[2021-12-09] MEDS ORDERED: ALBUMIN 25% 12.5 GM/50 ML VIAL IV ONE ×2 (14:54→14:56)
[2021-12-09] MEDS ORDERED: TUBERCULIN SKIN TEST 0.1 ML SYRINGE INTRADERM ONE (15:00)
[2021-12-09] MEDS: INSULIN GLARGINE 100 UNIT/ML SUBCUT SCH (21:55)
[2021-12-10] MEDS: LACTULOSE 20 GM/30 ML UDCUP PO SCH ×3 (01:59→09:10)
[2021-12-10 05:36] LABS: Basophils # 0.1 10*3/uL (0.0-0.2); Basophils % 1.1 % (0.0-0.8); Eosinophils # 0.2 10*3/uL (0.0-0.87); Eosinophils % 2.4 % (0.00-10.9); Hematocrit 35.2 VOL% (35.7-47.0); Hemoglobin 11.3 GM/DL (12.0-16.0); Immature Granulocytes % 0.8 %; Immature Granulocytes Absolute 0.05 #; Lymphocytes # 0.8 10*3/uL (1.4-4.0); Lymphocytes % 12.3 % (21.3-54.2); Mean Corpuscular HGB Conc 32.1 GM/DL (32-36); Mean Corpuscular Volume 89.3 FL (87-102); Mean Platelet Volume 10.2 FL (9.6-12.0); Monocytes # 0.7 10*3/uL (0.11-0.8); Monocytes % 10.3 % (1.7-12.7); Neutrophils % 73.1 % (38.7-73.9); Platelet Count 167 T/CUMM (130-400); Red Blood Count 3.94 MC/CUMM (3.8-5.5); White Blood Count 6.3 T/CUMM (4-12)
[2021-12-10 06:00] LABS: Albumin 1.9 G/DL (3.4-5.0); Bilirubin,Total 0.5 MG/DL (0.20-1.00); Calcium 8.3 MG/DL (8.5-10.1); Osmolality,Calculated 281.8 MOS/KG (273-304); Total Protein 5.8 G/DL (6.4-8.2)
[2021-12-10] MEDS: INSULIN REGULAR 100 UNIT/ML SUBCUT SCH ×2 (08:21→12:44)
[2021-12-10] MEDS: SPIRONOLACTONE 50 MG TABLET PO SCH (09:07)
[2021-12-10] MEDS: PANTOPRAZOLE 40 MG TABLET PO SCH (09:07)
[2021-12-10] MEDS: CHOLECALCIFEROL 400 UNIT TABLET PO SCH (09:07)
[2021-12-10] MEDS: CALCIUM (CARBONATE) 500 MG TABLET PO SCH (09:07)
[2021-12-10] MEDS: ASCORBIC ACID 500 MG TABLET PO SCH (09:07)
[2021-12-10] MEDS: MIDODRINE 5 MG TABLET PO SCH (09:09)
[2021-12-10] MEDS: RIFAXIMIN 550 MG TABLET PO SCH (09:09)
[2021-12-10] MEDS: METOPROLOL SUCCINATE XL 25 MG TABLET PO SCH (09:09)
[2021-12-10] MEDS: MENTHOL/ZINC OXIDE OINT 71 GM JAR TOP SCH (09:10)
[2021-12-10] MEDS: POLYETHYLENE GLYCOL POWDER 17 GM PACK PO SCH (09:10)
[2021-12-10] MEDS: ZINC SULFATE 220 MG CAPSULE PO SCH (09:10)
[2021-12-10] MEDS: PREGABALIN 75 MG CAPSULE PO SCH (09:10)
[2021-12-10 12:22] VITALS: BP 90/52
[2021-12-10] MEDS ORDERED: MIDODRINE 2.5 MG TABLET PO SCH (15:00)
== END 2021-12-10 13:11 | disposition swing bed (61) | DRG 441 ==
LOC: N.5E 19:08 → N.ED 19:08 → SUATTDRO 22:34 → OBSVTOIN 22:34 → N.5E 12-02 01:21
PROVIDERS: ADMIT Family Medicine; ATTEND Internal Medicine

== ENCOUNTER 2022-01-24 15:21 | Observation (INO) ==
[2022-01-24] MEDS ORDERED: MORPHINE 2 MG/1 ML SYRINGE IV STA (16:29)
[2022-01-24] MEDS ORDERED: ONDANSETRON 4 MG/2 ML VIAL IV STA (16:29)
[2022-01-24 16:41] LABS: Basophils # 0.1 10*3/uL (0.0-0.2); Basophils % 0.9 % (0.0-0.8); Eosinophils % 0.6 % (0.00-10.9); Hematocrit 32.2 VOL% (35.7-47.0); Hemoglobin 10.5 GM/DL (12.0-16.0); Immature Granulocytes % 0.7 %; Immature Granulocytes Absolute 0.05 #; Lymphocytes # 0.5 10*3/uL (1.4-4.0); Lymphocytes % 7.2 % (21.3-54.2); Mean Corpuscular HGB Conc 32.6 GM/DL (32-36); Mean Corpuscular Volume 93.3 FL (87-102); Mean Platelet Volume 9.8 FL (9.6-12.0); Monocytes # 0.4 10*3/uL (0.11-0.8); Monocytes % 5.9 % (1.7-12.7); Neutrophils % 84.7 % (38.7-73.9); Platelet Count 186 T/CUMM (130-400); Red Blood Count 3.45 MC/CUMM (3.8-5.5); Red Cell Distribution Width 16.6 % (9.3-17.3); White Blood Count 6.8 T/CUMM (4-12)
[2022-01-24 17:08] LABS: Bilirubin,Total 0.6 MG/DL (0.20-1.00); Calcium 8.1 MG/DL (8.5-10.1); Osmolality,Calculated 302.7 MOS/KG (273-304); Potassium 4.9 MMOL/L (3.5-5.1); Total Protein 6.4 G/DL (6.4-8.2)
[2022-01-24] MEDS ORDERED: INSULIN REGULAR 100 UNIT/ML IV STA (17:19)
[2022-01-24 17:54] LABS: Arterial Base Excess iSTAT -3 MMOL/L (-2.5-2.5); Arterial Bicarbonate iSTAT 21.1 MMOL/L (20-26); Arterial O2 Saturation iSTAT 97 % (95-100); Arterial PCO2 iSTAT 34 MM HG (35-48); Arterial PO2 iSTAT 87 MM HG (80-95); Arterial Total CO2 iSTAT 22 MMO/L (23-27); Arterial pH iSTAT 7.408 (7.35-7.45)
[2022-01-24] MEDS ORDERED: ONDANSETRON 4 MG/2 ML VIAL IV PRN (18:48)
[2022-01-24] MEDS ORDERED: DEXTROSE 50% 25 GM/50 ML VIAL IV PRN (18:48)
[2022-01-24] MEDS ORDERED: DEXTROSE 10% 250 ML BAG IV PRN (18:48)
[2022-01-24] MEDS ORDERED: GLUCAGON 1 MG VIAL IM PRN ×2 (18:48)
[2022-01-24] MEDS ORDERED: MORPHINE 2 MG/1 ML SYRINGE IV PRN (18:48)
[2022-01-24] MEDS: LACTULOSE 20 GM/30 ML UDCUP PO SCH ×2 (19:26→22:23)
[2022-01-24] MEDS: SODIUM CHLORIDE 0.9% 1,000 ML IV SCH (19:52)
[2022-01-24] MEDS: MIDODRINE 5 MG TABLET PO SCH (22:21)
[2022-01-24] MEDS: INSULIN LISPRO 100 UNIT/ML SUBCUT SCH (22:22)
[2022-01-24] MEDS: CALCIUM CARBONATE CHEW 500 MG TABLET PO SCH (22:23)
[2022-01-24 23:24] LABS: RBC,Urine 129 /HPF (0-4); Squamous Epithelial Cell,Urine Moderate /HPF (0-10)
[2022-01-24 23:25] LABS: Urine Appearance Slightly Cloudy (Clear); Urine Color Yellow (Yellow)
[2022-01-24 23:26] LABS: Bilirubin,Urine Negative (Negative); Blood, Urine Moderate mg/dL (Negative); Glucose,Urine (UA) 500 mg/dL (Negative); Ketones,Urine Negative (Negative); Nitrite,Urine Negative (Negative); Protein,Urine Negative (Negative); Urine Specific Gravity 1.015 (1.001-1.035); Urine Urobilinogen 0.2 eU/dL (<2.0)
[2022-01-25] MEDS: INSULIN LISPRO 100 UNIT/ML SUBCUT SCH ×6 (02:30→21:11)
[2022-01-25] MEDS: LACTULOSE 20 GM/30 ML UDCUP PO SCH ×6 (02:31→21:11)
[2022-01-25 04:53] LABS: Basophils # 0.1 10*3/uL (0.0-0.2); Eosinophils # 0.1 10*3/uL (0.0-0.87); Eosinophils % 1.2 % (0.00-10.9); Hematocrit 33.2 VOL% (35.7-47.0); Hemoglobin 10.7 GM/DL (12.0-16.0); Immature Granulocytes % 0.5 %; Immature Granulocytes Absolute 0.03 #; Lymphocytes # 0.6 10*3/uL (1.4-4.0); Lymphocytes % 10.9 % (21.3-54.2); Mean Corpuscular HGB Conc 32.2 GM/DL (32-36); Mean Corpuscular Volume 93.3 FL (87-102); Mean Platelet Volume 9.4 FL (9.6-12.0); Monocytes # 0.4 10*3/uL (0.11-0.8); Monocytes % 6.7 % (1.7-12.7); Neutrophils % 79.7 % (38.7-73.9); Platelet Count 174 T/CUMM (130-400); Red Blood Count 3.56 MC/CUMM (3.8-5.5); Red Cell Distribution Width 16.3 % (9.3-17.3); White Blood Count 5.8 T/CUMM (4-12)
[2022-01-25 05:09] LABS: Calcium 8.6 MG/DL (8.5-10.1); Osmolality,Calculated 293.7 MOS/KG (273-304); Potassium 4.2 MMOL/L (3.5-5.1)
[2022-01-25 07:53] LABS: PT Patient Result 10.8 SECS (10.1-12.1)
[2022-01-25] MEDS: CALCIUM CARBONATE CHEW 500 MG TABLET PO SCH ×4 (08:29→20:23)
[2022-01-25] MEDS: FUROSEMIDE 20 MG TABLET PO SCH ×2 (08:29→09:55)
[2022-01-25] MEDS: SODIUM CHLORIDE 0.9% 1,000 ML IV SCH (09:49)
[2022-01-25] MEDS: PANTOPRAZOLE 40 MG TABLET PO SCH (09:54)
[2022-01-25] MEDS: MIDODRINE 5 MG TABLET PO SCH ×3 (09:55→20:23)
[2022-01-25] MEDS ORDERED: ZINC OXIDE PASTE 113 GM TUBE TOP PRN (12:33)
[2022-01-25] MEDS ORDERED: SPIRONOLACTONE 50 MG TABLET PO SCH (14:30)
[2022-01-25] MEDS ORDERED: ALBUMIN 25% 12.5 GM/50 ML VIAL IV ONE ×2 (15:30→15:35)
[2022-01-25] MEDS ORDERED: TISSUE ADHESIVE 1 EACH APPLICATOR TOP ONE (15:50)
[2022-01-26] MEDS: INSULIN LISPRO 100 UNIT/ML SUBCUT SCH ×2 (03:51→06:05)
[2022-01-26 07:15] LABS: Calcium 8.7 MG/DL (8.5-10.1)
[2022-01-26] MEDS: MIDODRINE 5 MG TABLET PO SCH (10:01)
[2022-01-26] MEDS: CALCIUM CARBONATE CHEW 500 MG TABLET PO SCH (10:01)
[2022-01-26] MEDS: FUROSEMIDE 20 MG TABLET PO SCH (10:02)
[2022-01-26] MEDS: PANTOPRAZOLE 40 MG TABLET PO SCH (10:02)
[2022-01-26] MEDS: LACTULOSE 20 GM/30 ML UDCUP PO SCH (10:02)
[2022-01-26 12:28] VITALS: BP 109/71
== END 2022-01-26 13:48 | disposition home health service (06) ==
LOC: EDUNIT# → EDBD → N.ED 15:21 → N.EDINP 15:21 → SUATTDRO 18:48 → N.2W 20:04
PROVIDERS: ADMIT Internal Medicine; ATTEND Internal Medicine

== ENCOUNTER 2022-05-15 02:00 | Inpatient (IN) ==
[2022-05-15] MEDS ORDERED: DEXTROSE 50% 25 GM/50 ML VIAL IV PRN (03:45)
[2022-05-15] MEDS ORDERED: ALUMINUM/MAGNES/SIMETH MAX STR 30 ML UDCUP PO PRN (03:45)
[2022-05-15] MEDS ORDERED: ACETAMINOPHEN 325 MG TABLET PO PRN (03:45)
[2022-05-15] MEDS ORDERED: ONDANSETRON 4 MG/2 ML VIAL IV PRN (03:45)
[2022-05-15] MEDS ORDERED: GLUCAGON 1 MG VIAL IM PRN ×2 (03:45→03:51)
[2022-05-15] MEDS ORDERED: INSULIN REGULAR 100 UNIT/ML SUBCUT ONE (03:47)
[2022-05-15] MEDS ORDERED: DEXTROSE 10% 250 ML BAG IV PRN (03:51)
[2022-05-15] MEDS ORDERED: MELATONIN 3 MG TABLET PO PRN (03:53)
[2022-05-15] MEDS ORDERED: LACTULOSE 20 GM/30 ML UDCUP PO SCH (04:00)
[2022-05-15] MEDS ORDERED: AZITHROMYCIN INJ 500 MG in SODIUM CHLORIDE 0.9% 250 ML IV ONE (05:00)
[2022-05-15 05:01] LABS: Basophils % 0.7 % (0.0-0.8); Eosinophils % 0.7 % (0.00-10.9); Hematocrit 27.7 VOL% (35.7-47.0); Immature Granulocytes % 0.5 %; Immature Granulocytes Absolute 0.02 #; Lymphocytes # 0.3 10*3/uL (1.4-4.0); Lymphocytes % 7.7 % (21.3-54.2); Mean Corpuscular HGB Conc 32.5 GM/DL (32-36); Mean Corpuscular Volume 94.9 FL (87-102); Mean Platelet Volume 10.2 FL (9.6-12.0); Monocytes # 0.4 10*3/uL (0.11-0.8); Neutrophils % 81.4 % (38.7-73.9); Platelet Count 110 T/CUMM (130-400); Red Blood Count 2.92 MC/CUMM (3.8-5.5); Red Cell Distribution Width 14.8 % (9.3-17.3); White Blood Count 4.1 T/CUMM (4-12)
[2022-05-15 05:21] LABS: PT Patient Result 10.8 SECS (10.1-12.1); Partial Thromboplastin Time 25.4 SECS (23.7-32.9)
[2022-05-15 05:25] LABS: Albumin 2.5 G/DL (3.4-5.0); Bilirubin,Total 0.5 MG/DL (0.20-1.00); Calcium 8.4 MG/DL (8.5-10.1); Osmolality,Calculated 308.4 MOS/KG (273-304); Potassium 4.2 MMOL/L (3.5-5.1); Total Protein 6.9 G/DL (6.4-8.2)
[2022-05-15 05:34] LABS: Ferritin 19.3 ng/mL (8-252)
[2022-05-15] MEDS ORDERED: CALCIUM (CARBONATE) 500 MG TABLET PO PRN (06:47)
[2022-05-15] MEDS: INSULIN LISPRO 100 UNIT/ML SUBCUT SCH ×3 (08:46→17:27)
[2022-05-15] MEDS: CHOLECALCIFEROL 1,000 UNIT TABLET PO SCH (08:47)
[2022-05-15] MEDS: ASCORBIC ACID 500 MG TABLET PO SCH ×2 (08:47→21:04)
[2022-05-15] MEDS: INSULIN REGULAR 100 UNIT/ML SUBCUT SCH ×4 (08:47→21:03)
[2022-05-15] MEDS: MIDODRINE 5 MG TABLET PO SCH ×3 (08:48→21:04)
[2022-05-15] MEDS: CLOPIDOGREL 75 MG TABLET PO SCH (08:48)
[2022-05-15] MEDS: PANTOPRAZOLE 40 MG TABLET PO SCH (08:48)
[2022-05-15] MEDS: ASPIRIN EC 81 MG TABLET PO SCH (08:48)
[2022-05-15] MEDS: DEXAMETHASONE 4 MG/1 ML VIAL IV SCH (08:48)
[2022-05-15] MEDS: ZINC GLUCONATE 50 MG TABLET PO SCH (08:48)
[2022-05-15] MEDS ORDERED: FUROSEMIDE 20 MG TABLET PO SCH (09:00)
[2022-05-15] MEDS ORDERED: CHOLECALCIFEROL 1,000 UNIT TABLET PO SCH (09:00)
[2022-05-15] MEDS ORDERED: ACETAMINOPHEN 500 MG TABLET PO PRN (09:57)
[2022-05-15] MEDS: RIFAXIMIN 550 MG TABLET PO SCH ×2 (11:05→21:04)
[2022-05-15] MEDS: LACTULOSE 20 GM/30 ML UDCUP PO SCH ×2 (13:04→17:31)
[2022-05-15] MEDS: FUROSEMIDE 40 MG TABLET PO SCH (17:26)
[2022-05-15] MEDS: INSULIN GLARGINE 100 UNIT/ML SUBCUT SCH (17:28)
[2022-05-15] MEDS: ATORVASTATIN 40 MG TABLET PO SCH (21:04)
[2022-05-16] MEDS: LACTULOSE 20 GM/30 ML UDCUP PO SCH ×4 (00:01→17:10)
[2022-05-16 06:11] LABS: Basophils % 0.4 % (0.0-0.8); Eosinophils % 0.2 % (0.00-10.9); Hematocrit 27.9 VOL% (35.7-47.0); Hemoglobin 9.1 GM/DL (12.0-16.0); Immature Granulocytes % 0.4 %; Immature Granulocytes Absolute 0.02 #; Lymphocytes # 0.7 10*3/uL (1.4-4.0); Lymphocytes % 13.4 % (21.3-54.2); Mean Corpuscular HGB Conc 32.6 GM/DL (32-36); Mean Corpuscular Volume 94.3 FL (87-102); Mean Platelet Volume 10.4 FL (9.6-12.0); Monocytes # 0.4 10*3/uL (0.11-0.8); Monocytes % 8.4 % (1.7-12.7); Neutrophils % 77.2 % (38.7-73.9); Platelet Count 113 T/CUMM (130-400); Red Blood Count 2.96 MC/CUMM (3.8-5.5); Red Cell Distribution Width 15.1 % (9.3-17.3); White Blood Count 5.2 T/CUMM (4-12)
[2022-05-16 08:00] LABS: Calcium 8.5 MG/DL (8.5-10.1); Osmolality,Calculated 292.5 MOS/KG (273-304); Potassium 4.6 MMOL/L (3.5-5.1)
[2022-05-16] MEDS: INSULIN LISPRO 100 UNIT/ML SUBCUT SCH ×3 (08:15→16:58)
[2022-05-16] MEDS: INSULIN REGULAR 100 UNIT/ML SUBCUT SCH ×4 (08:15→21:38)
[2022-05-16] MEDS: CHOLECALCIFEROL 1,000 UNIT TABLET PO SCH (08:16)
[2022-05-16] MEDS: DEXAMETHASONE 4 MG/1 ML VIAL IV SCH (08:16)
[2022-05-16] MEDS: PANTOPRAZOLE 40 MG TABLET PO SCH (08:16)
[2022-05-16] MEDS: RIFAXIMIN 550 MG TABLET PO SCH ×2 (08:16→21:37)
[2022-05-16] MEDS: AZITHROMYCIN 250 MG TABLET PO SCH (08:16)
[2022-05-16] MEDS: ASPIRIN EC 81 MG TABLET PO SCH (08:16)
[2022-05-16] MEDS: ASCORBIC ACID 500 MG TABLET PO SCH ×2 (08:17→21:37)
[2022-05-16] MEDS: MIDODRINE 5 MG TABLET PO SCH ×3 (08:17→21:37)
[2022-05-16] MEDS: ZINC GLUCONATE 50 MG TABLET PO SCH (08:17)
[2022-05-16] MEDS: FUROSEMIDE 40 MG TABLET PO SCH ×2 (08:17→16:58)
[2022-05-16] MEDS: CLOPIDOGREL 75 MG TABLET PO SCH (08:17)
[2022-05-16] MEDS: INSULIN GLARGINE 100 UNIT/ML SUBCUT SCH (16:59)
[2022-05-16] MEDS: ATORVASTATIN 40 MG TABLET PO SCH (21:37)
[2022-05-16] MEDS: ZINC OXIDE PASTE 113 GM TUBE TOP SCH (21:40)
[2022-05-17] MEDS: LACTULOSE 20 GM/30 ML UDCUP PO SCH ×3 (00:40→12:25)
[2022-05-17 05:55] LABS: Basophils % 0.4 % (0.0-0.8); Eosinophils # 0.1 10*3/uL (0.0-0.87); Eosinophils % 1.2 % (0.00-10.9); Hematocrit 29.2 VOL% (35.7-47.0); Hemoglobin 9.5 GM/DL (12.0-16.0); Immature Granulocytes % 0.4 %; Immature Granulocytes Absolute 0.02 #; Lymphocytes # 0.8 10*3/uL (1.4-4.0); Lymphocytes % 15.7 % (21.3-54.2); Mean Corpuscular HGB Conc 32.5 GM/DL (32-36); Mean Corpuscular Volume 93.6 FL (87-102); Mean Platelet Volume 9.9 FL (9.6-12.0); Monocytes # 0.4 10*3/uL (0.11-0.8); Monocytes % 7.5 % (1.7-12.7); Neutrophils % 74.8 % (38.7-73.9); Platelet Count 123 T/CUMM (130-400); Red Blood Count 3.12 MC/CUMM (3.8-5.5); White Blood Count 5.2 T/CUMM (4-12)
[2022-05-17 06:29] LABS: Calcium 7.9 MG/DL (8.5-10.1); Osmolality,Calculated 288.7 MOS/KG (273-304); Potassium 3.5 MMOL/L (3.5-5.1)
[2022-05-17] MEDS: INSULIN LISPRO 100 UNIT/ML SUBCUT SCH ×2 (08:51→12:26)
[2022-05-17] MEDS: ASPIRIN EC 81 MG TABLET PO SCH (08:52)
[2022-05-17] MEDS: CHOLECALCIFEROL 1,000 UNIT TABLET PO SCH (08:52)
[2022-05-17] MEDS: RIFAXIMIN 550 MG TABLET PO SCH (08:52)
[2022-05-17] MEDS: ZINC GLUCONATE 50 MG TABLET PO SCH (08:52)
[2022-05-17] MEDS: ASCORBIC ACID 500 MG TABLET PO SCH (08:52)
[2022-05-17] MEDS: PANTOPRAZOLE 40 MG TABLET PO SCH (08:52)
[2022-05-17] MEDS: AZITHROMYCIN 250 MG TABLET PO SCH (08:52)
[2022-05-17] MEDS: FUROSEMIDE 40 MG TABLET PO SCH (08:53)
[2022-05-17] MEDS: MIDODRINE 5 MG TABLET PO SCH (08:53)
[2022-05-17] MEDS: ZINC OXIDE PASTE 113 GM TUBE TOP SCH (08:58)
[2022-05-17] MEDS: DEXAMETHASONE 4 MG/1 ML VIAL IV SCH (08:58)
[2022-05-17] MEDS: INSULIN REGULAR 100 UNIT/ML SUBCUT SCH (09:07)
[2022-05-17] MEDS ORDERED: INSULIN LISPRO 100 UNIT/ML SUBCUT SCH (11:30)
[2022-05-17 11:54] VITALS: BP 106/69
== END 2022-05-17 13:56 | disposition home or self-care (01) | DRG 441 ==
LOC: SUATTDRO 03:19 → N.2E 03:19
PROVIDERS: ADMIT Internal Medicine; ATTEND Hospitalist

== ENCOUNTER 2022-06-21 17:36 | Inpatient (IN) ==
[2022-06-21] MEDS ORDERED: PANTOPRAZOLE 40 MG VIAL IV STA (18:19)
[2022-06-21] MEDS ORDERED: ONDANSETRON 4 MG/2 ML VIAL IV STA (18:19)
[2022-06-21] MEDS ORDERED: HYDROmorphone 1 MG/1 ML SYRINGE IV STA (18:19)
[2022-06-21 19:00] LABS: Basophils % 0.7 % (0.0-0.8); Eosinophils # 0.1 10*3/uL (0.0-0.87); Eosinophils % 1.2 % (0.00-10.9); Hemoglobin 9.3 GM/DL (12.0-16.0); Immature Granulocytes % 0.5 %; Immature Granulocytes Absolute 0.02 #; Lymphocytes # 0.5 10*3/uL (1.4-4.0); Lymphocytes % 12.4 % (21.3-54.2); Mean Corpuscular HGB Conc 33.2 GM/DL (32-36); Mean Corpuscular Volume 91.2 FL (87-102); Mean Platelet Volume 9.4 FL (9.6-12.0); Monocytes # 0.3 10*3/uL (0.11-0.8); Monocytes % 6.2 % (1.7-12.7); Platelet Count 120 T/CUMM (130-400); Red Blood Count 3.07 MC/CUMM (3.8-5.5); Red Cell Distribution Width 13.8 % (9.3-17.3); White Blood Count 4.19 T/CUMM (4-12)
[2022-06-21 19:19] LABS: Albumin 2.5 G/DL (3.4-5.0); Bilirubin,Total 0.4 MG/DL (0.20-1.00); Calcium 8.5 MG/DL (8.5-10.1); Osmolality,Calculated 294.7 MOS/KG (273-304); Potassium 3.9 MMOL/L (3.5-5.1); Total Protein 6.3 G/DL (6.4-8.2)
[2022-06-21] MEDS ORDERED: LACTULOSE 20 GM/30 ML UDCUP PO STA (19:19)
[2022-06-21 19:20] LABS: Lactic Acid 1.1 MMOL/L (0.4-2.0)
[2022-06-21 19:50] LABS: Bilirubin,Urine Negative (Negative); Blood, Urine Trace mg/dL (Negative); Glucose,Urine (UA) Negative (Negative); Ketones,Urine Negative (Negative); Nitrite,Urine Negative (Negative); Protein,Urine Negative (Negative); Urine Appearance Clear (Clear); Urine Color Yellow (Yellow); Urine Specific Gravity 1.025 (1.001-1.035); Urine Urobilinogen 0.2 eU/dL (<2.0); Urine pH 5.5 (4.5-8.0)
[2022-06-21 19:52] LABS: Bacteria,Urine Many /HPF (Few); Hyaline Casts,Urine 3 /LPF (0-3); Mucus,Urine Occasional /LPF (Occasional); RBC,Urine 2 /HPF (0-4); Squamous Epithelial Cell,Urine Occasional /HPF (0-10)
[2022-06-21] MEDS ORDERED: SIMETHICONE CHEW 125 MG TABLET PO PRN (20:24)
[2022-06-21] MEDS ORDERED: ONDANSETRON 4 MG/2 ML VIAL IV PRN (20:24)
[2022-06-21] MEDS ORDERED: GLUCAGON 1 MG VIAL IM PRN (20:48)
[2022-06-21] MEDS ORDERED: DEXTROSE 10% 250 ML BAG IV PRN (20:48)
[2022-06-21] MEDS ORDERED: CALCIUM CARBONATE CHEW 500 MG TABLET PO PRN (21:05)
[2022-06-21] MEDS: ATORVASTATIN 40 MG TABLET PO SCH (22:29)
[2022-06-21] MEDS: MIDODRINE 5 MG TABLET PO SCH (22:29)
[2022-06-22] MEDS: INSULIN REGULAR 100 UNIT/ML SUBCUT SCH ×5 (00:21→21:20)
[2022-06-22] MEDS: LACTULOSE 20 GM/30 ML UDCUP PO SCH ×9 (00:21→23:00)
[2022-06-22 05:03] LABS: Basophils % 1.2 % (0.0-0.8); Eosinophils # 0.1 10*3/uL (0.0-0.87); Eosinophils % 1.5 % (0.00-10.9); Hematocrit 25.7 VOL% (35.7-47.0); Hemoglobin 8.4 GM/DL (12.0-16.0); Immature Granulocytes % 0.3 %; Immature Granulocytes Absolute 0.01 #; Lymphocytes # 0.6 10*3/uL (1.4-4.0); Lymphocytes % 16.3 % (21.3-54.2); Mean Corpuscular HGB Conc 32.7 GM/DL (32-36); Mean Corpuscular Volume 92.1 FL (87-102); Mean Platelet Volume 9.9 FL (9.6-12.0); Monocytes # 0.3 10*3/uL (0.11-0.8); Monocytes % 8.7 % (1.7-12.7); Platelet Count 110 T/CUMM (130-400); Red Blood Count 2.79 MC/CUMM (3.8-5.5); Red Cell Distribution Width 13.8 % (9.3-17.3); White Blood Count 3.43 T/CUMM (4-12)
[2022-06-22 05:31] LABS: Albumin 2.2 G/DL (3.4-5.0); Bilirubin,Total 0.6 MG/DL (0.20-1.00); Calcium 8.2 MG/DL (8.5-10.1); Osmolality,Calculated 298.3 MOS/KG (273-304); Total Protein 6.1 G/DL (6.4-8.2)
[2022-06-22 07:16] LABS: PT Patient Result 10.9 SECS (10.1-12.1)
[2022-06-22] MEDS ORDERED: FUROSEMIDE 40 MG TABLET PO SCH (09:00)
[2022-06-22] MEDS: INSULIN LISPRO 100 UNIT/ML SUBCUT SCH ×3 (09:18→16:01)
[2022-06-22] MEDS: CHOLECALCIFEROL 1,000 UNIT TABLET PO SCH (10:30)
[2022-06-22] MEDS: MIDODRINE 5 MG TABLET PO SCH ×3 (10:30→20:00)
[2022-06-22] MEDS: PANTOPRAZOLE 40 MG VIAL IV SCH (10:30)
[2022-06-22] MEDS ORDERED: ALBUMIN 25% 12.5 GM/50 ML VIAL IV ONE ×2 (12:10→12:17)
[2022-06-22] MEDS ORDERED: TISSUE ADHESIVE 1 EACH APPLICATOR TOP ONE (12:30)
[2022-06-22] MEDS ORDERED: GLUCAGON 1 MG VIAL IM PRN (13:15)
[2022-06-22] MEDS ORDERED: DEXTROSE 50% 25 GM/50 ML VIAL IV PRN (13:15)
[2022-06-22] MEDS ORDERED: INSULIN GLARGINE 100 UNIT/ML SUBCUT SCH (17:00)
[2022-06-22] MEDS: ZINC OXIDE PASTE 113 GM TUBE TOP SCH (20:00)
[2022-06-22] MEDS: ATORVASTATIN 40 MG TABLET PO SCH (20:00)
[2022-06-23] MEDS: LACTULOSE 20 GM/30 ML UDCUP PO SCH ×2 (02:15→06:30)
[2022-06-23 05:43] LABS: Basophils % 0.9 % (0.0-0.8); Eosinophils # 0.1 10*3/uL (0.0-0.87); Hemoglobin 9.4 GM/DL (12.0-16.0); Immature Granulocytes % 0.7 %; Immature Granulocytes Absolute 0.03 #; Lymphocytes # 0.6 10*3/uL (1.4-4.0); Lymphocytes % 12.5 % (21.3-54.2); Mean Corpuscular HGB Conc 32.4 GM/DL (32-36); Mean Corpuscular Volume 92.4 FL (87-102); Mean Platelet Volume 10.2 FL (9.6-12.0); Monocytes # 0.3 10*3/uL (0.11-0.8); Monocytes % 7.4 % (1.7-12.7); Neutrophils % 76.5 % (38.7-73.9); Platelet Count 109 T/CUMM (130-400); Red Blood Count 3.14 MC/CUMM (3.8-5.5); Red Cell Distribution Width 13.8 % (9.3-17.3); White Blood Count 4.48 T/CUMM (4-12)
[2022-06-23 06:09] LABS: Calcium 8.3 MG/DL (8.5-10.1); Osmolality,Calculated 291.8 MOS/KG (273-304)
[2022-06-23] MEDS ORDERED: LACTATED RINGERS 1,000 ML IV SCH (06:30)
[2022-06-23] MEDS: INSULIN LISPRO 100 UNIT/ML SUBCUT SCH ×2 (07:57→12:38)
[2022-06-23] MEDS: INSULIN REGULAR 100 UNIT/ML SUBCUT SCH ×2 (07:57→12:38)
[2022-06-23] MEDS ORDERED: LIDOCAINE 2% 5 ML VIAL ONE (08:27)
[2022-06-23] MEDS ORDERED: propofoL 200 MG/20 ML VIAL IV ONE (08:27)
[2022-06-23] MEDS ORDERED: GLYCOPYRROLATE 0.4 MG/2 ML VIAL ONE (08:27)
[2022-06-23] MEDS ORDERED: PHENYLEPHRINE 1 MG/10 ML SYRINGE IV ONE (08:33)
[2022-06-23] MEDS ORDERED: LACTULOSE 20 GM/30 ML UDCUP PO SCH (09:00)
[2022-06-23] MEDS ORDERED: ALBUMIN 25% 50 GM/200 ML VIAL IV ONE (09:00)
[2022-06-23] MEDS: ZINC OXIDE PASTE 113 GM TUBE TOP SCH (09:35)
[2022-06-23] MEDS: CHOLECALCIFEROL 1,000 UNIT TABLET PO SCH (09:35)
[2022-06-23] MEDS: MIDODRINE 5 MG TABLET PO SCH (09:35)
[2022-06-23] MEDS: PANTOPRAZOLE 40 MG VIAL IV SCH (09:36)
[2022-06-23 11:58] VITALS: BP 97/59
== END 2022-06-23 13:18 | disposition home or self-care (01) | DRG 442 ==
LOC: EDBD → EDUNIT# → N.ED 17:36 → N.3E 20:24
PROVIDERS: ADMIT Internal Medicine; ATTEND Internal Medicine